=== PATIENT | female | born 2000 | race African-American/Black ===

== ENCOUNTER 2019-06-18 03:16 | Emergency (ER) | payer OTHER ==
[~2019-06-18] VITALS: Ht 167.6 cm; Wt 72.6 kg
[2019-06-18 03:16] VITALS: BP 120/63
[2019-06-18] MEDS ORDERED: CEPH-264 PO (03:42)
--- NOTE | 2019-06-18 05:28 | PHYS DOC ---
Past History Past Medical History: No Pertinent History Past Surgical History: No Surgical History Alcohol Use: None Drug Use: None Adult General Chief Complaint Chief Complaint: EYE PROBLEMS HPI HPI Patient is a 18-year-old -[place] female presents with tenderness redness and itching of left upper eyelid. No change in vision, pink eye, drainage. Minimal pain and tenderness. Symptoms began several hours prior to ED arrival. Review of Systems Review of Systems Review symptoms as per history of present illness. All other review symptoms are negative. All other systems were reviewed and found to be within normal limits, except as documented in this note. Physical Exam Physical Exam Constitutional: Well developed, well nourished, no acute distress.. [] HENT: Normocephalic, atraumatic, bilateral external ears normal, oropharynx moist, no oral exudates, nose normal. [] Eyes: PERRLA, EOMI, conjunctiva normal, left upper eyelid, mild erythema, edema, no matting. Early palpable stye.. [] Current Patient Data Vital Signs Vital Signs Date Time Temp Pulse Resp B/P (MAP) Pulse Ox O2 Delivery O2 Flow Rate FiO2 06/18/19 03:16 99.3 71 18 100 Room Air EKG EKG [] Radiology/Procedures Radiology/Procedures [] Course & Med Decision Making Course & Med Decision Making Pertinent Labs and Imaging studies reviewed. (See chart for details) [Box prescribed. Recommend supportive care with watchful waiting and PCP follow- up for reevaluation.] Dragon Disclaimer Dragon Disclaimer This electronic medical record was generated, in whole or in part, using a voice recognition dictation system. Departure Departure: Impression: Primary Impression: Hordeolum externum left upper eyelid Disposition: 01 HOME, SELF-CARE Condition: STABLE Patient Instructions: Sty Additional Instructions: Take ibuprofen or pain and Benadryl for itching. Apply warm compresses and take antibiotics as directed. Follow-up with PCP in 3-5 days for reevaluation.. Scripts Cephalexin (KEFLEX) 500 Mg Capsule 1 CAP PO TID for 10 Days, #30 CAP 0 Refills Prov: YOUNG LAY DO 06/18/19 YOUNG LAY DO Jun 18, 2019 05:28
== END 2019-06-18 03:50 | disposition home or self-care (01) ==
LOC: ER 03:16
DX: H00.014 Hordeolum externum left upper eyelid (principal)
CPT/HCPCS: 99283

== ENCOUNTER 2019-07-27 14:22 | Emergency (ER) | payer OTHER ==
[~2019-07-27] VITALS: Ht 167.6 cm; Wt 75.8 kg
[~2019-07-27 14:22] MED LIST: CEPH-264 PO
--- NOTE | 2019-07-27 15:26 | RAD ---
KNEE BILAT 3V History: Bilateral knee pain. Technique: 3 views bilateral knees. Comparison: None. Findings: Normal alignment. No fracture. No significant knee joint effusion. Soft tissues unremarkable. Impression: 1. No acute osseous abnormality within bilateral knees. Electronically signed by: Andrade Greenwood DO (07/27/2019 3:23 PM) [id number]
--- NOTE | 2019-07-27 15:37 | PHYS DOC ---
Past History Past Medical History: No Pertinent History Past Surgical History: No Surgical History Alcohol Use: None Drug Use: None Adult General Chief Complaint Chief Complaint: KNEE INJURY [facility] HPI Patient is a 18-year-old female who presented to ER today for evaluation of bilateral knee pain off and on for several months. Patient says sometimes she felt like her knee was unstable. Sometime she felt like it came in and out of place without any injury. She denies any injury. She denies any leg swelling, no chest pain, no trouble breathing. All other ROS is negative unless otherwise noted in HPI Review of Systems Review of Systems See above Allergies Allergies Allergies Coded Allergies Type Severity Reaction Last Updated Verified No Known Drug Allergies 07/27/19 No Physical Exam Physical Exam See above Constitutional: Well developed, well nourished, no acute distress, non-toxic appearance. [] HENT: Normocephalic, atraumatic, bilateral external ears normal, oropharynx moist, no oral exudates, nose normal. [] Eyes: PERRLA, EOMI, conjunctiva normal, no discharge. [] Neck: Normal range of motion, no tenderness, supple, no stridor. [] Cardiovascular:Heart rate regular rhythm, no murmur [] Lungs & Thorax: Bilateral breath sounds clear to auscultation [] Abdomen: Bowel sounds normal, soft, no tenderness, no masses, no pulsatile masses. [] Skin: Warm, dry, no erythema, no rash. [] Back: No tenderness, no CVA tenderness. [] Extremities: No tenderness, no cyanosis, no clubbing, ROM intact, no edema. [] Neurologic: Alert and oriented X 3, normal motor function, normal sensory function, no focal deficits noted. [] Psychologic: Affect normal, judgement normal, mood normal. [] Current Patient Data Vital Signs Vital Signs Date Time Temp Pulse Resp B/P (MAP) Pulse Ox O2 Delivery O2 Flow Rate FiO2 07/27/19 14:22 98.3 98 18 109/67 (81) 97 Room Air EKG EKG [] Radiology/Procedures Radiology/Procedures [][address] [address] IMAGING REPORT Signed PATIENT: MOON BANDA ACCOUNT: [id number] : 2000 LOCATION: ER AGE: 18 SEX: F EXAM STATUS: REG ER ORD. PHYSICIAN: MICHAEL ALEMAN DO REASON: bilateral knees pain off and on for several weeks. PROCEDURE: KNEE BILAT 3V KNEE BILAT 3V History: Bilateral knee pain. Technique: 3 views bilateral knees. Comparison: None. Findings: Normal alignment. No fracture. No significant knee joint effusion. Soft tissues unremarkable. Impression: 1. No acute osseous abnormality within bilateral knees. Electronically signed by: Vani Dey DO (07/27/2019 3:23 PM) [id number] DICTATED AND SIGNED BY: VANI DEY DO DATE: 07/27/19 1523 CC: PCP,UNKNOWN; MICHAEL ALEMAN DO ~ Course & Med Decision Making Course & Med Decision Making Pertinent Labs and Imaging studies reviewed. (See chart for details) [] Dragon Disclaimer Dragon Disclaimer This electronic medical record was generated, in whole or in part, using a voice recognition dictation system. Departure Departure: Impression: Primary Impression: Knee pain, bilateral Disposition: 01 HOME, SELF-CARE Condition: STABLE Referrals: PCP,UNKNOWN (PCP) follow up with your doctor for outpatient with MRI OF YOUR KNEES. Patient Instructions: Knee Pain Additional Instructions: Thank you for visiting our Emergency Department. We appreciate you trusting us with your care. If any additional problems come up don't hesitate to return to visit us. Please follow up with your primary care provider so they can plan additional care if needed and know about the problem that you had. If symptoms worsen come back to the Emergency Department. Any concerning symptoms that start such as chest pain, shortness of air, weakness or numbness on one side of the body, running high fevers or any other concerning symptoms return to the ER. MICHAEL ALEMAN DO Jul 27, 2019 15:37
[2019-07-27 15:47] VITALS: BP 119/62
== END 2019-07-27 15:47 | disposition home or self-care (01) ==
LOC: ER 14:22
DX: M25.562 Pain in left knee (principal); M25.561 Pain in right knee
CPT/HCPCS: 73562; 99284